=== PATIENT | male | born 2000 | race Caucasian/White ===

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

== ENCOUNTER 2025-04-03 19:08 | Emergency (ER) | payer BC ==
[~2025-04-03] VITALS: Ht 188 cm; Wt 86.5 kg
[~2025-04-03 19:08] MED LIST changes: -CLOM25CA10 PO; -CLOM50CA10 PO; +CLOM50CA4 PO; -ESCI-10 PO; +ESCI-8 PO; -LACT1CAP60 PO; +LIT300C PO; -LITH450T2 PO; +RISP0.5T74 PO; -RISP1TAB13 PO; +SERT-433 PO; +TOP25T PO; -TOPI25TA15 PO
[2025-04-03 20:19] LABS: CREATININE 0.77 MG/DL (0.60-1.10); TOTAL CARBON DIOXIDE 27.0 MMOL/L (24-32); eCRCL 175 ML/MIN; eGFR > 90 ML/MIN
--- NOTE | 2025-04-03 21:04 | Physician Documentation ---
History of Present Illness ~ Chief Complaint: Abdominal Pain w/vomiting Stated Complaint: ABD PAIN Time Seen by MD: 20:16 Primary Medical Doctor: none Source: patient, family Mode of Arrival: POV Exam Limitations: no limitations HPI Chief Complaint: Abdominal pain Caveat: None Independent Historians: Father History of Present Illness: Patient is a 24-year-old man with history of Crohn's disease. Patient is on Skyrizi and has been having some abdominal pain for approximately one month. His presentation designer at [facility] is aware and he has a follow up appointment for endoscopy/colonoscopy on April 26. Patient was out drinking alcohol last night. He believes that this has made his abdominal pain worse. This pain is ranged from five to 8/10. Currently his pain is 5/10. Pain is described as an intermittent squeezing sensation. Patient has had nausea and vomiting for 12 hours and has not been able to keep anything down. That has they main reason why he is currently here. Denies fever. Review of systems: All systems were reviewed and are negative except for what is indicated in the history of present illness. Past Medical History: Crohn's disease Past Surgical History: Fissurectomy Social History: Occasional alcohol, no tobacco use, no drug use Medications: Reviewed as documented Nursing Notes Allergies: Reviewed as documented in Nursing Notes Medication Reconciliation Allergies: Coded Allergies: No Known Allergies (Unverified , 04/03/25) Scheduled Clomipramine HCl (Anafranil), 3 CAP PO HS Escitalopram Oxalate (Escitalopram Oxalate), 1 TAB PO DAILY Graball Carbonate (LITHIUM CARBONATE tablet), 2 TAB PO Q12H Risperidone (Risperdal), 4 TAB PO HS Sertraline HCl (Sertraline HCl), 1 TAB PO DAILY Topiramate (Topamax), 1 TAB PO Q12H Past Medical History Past Medical History: *GI/HEPATOBILIARY*, C-Diff, *PSYCH*, Depression Past Surgical History: noncontributory Drug Use: none Lives with: Family Lives In: Home Review of Systems All Other Systems at this time: Reviewed and Negative ROS Patient denies any other acute symptoms other than above. All other systems are negative Physical Exam Vital Signs: RN Vital Signs have been reviewed: Yes, Temperature: 97.9, Source: Temporal, Heart Rate: 136, Respiratory Rate: 18, BP: 126/64, Pulse Oximetry: 100, Weight: 86.500 Pulse Oximetry Reflects: adequate oxygenation Physical Exam General Appearance: Mild distress HEENT: Normal OP, moist oral mucosa, PERRL, EOMI Neck: supple, normal ROM, trachea midline Pulmonary: No respiratory distress, CTA, BS equal Cardiac: RRR, no murmur, rub or gallop, GI: nondistended, soft, right lower quadrant tenderness, normal bowel sounds, no guarding, no rebound : No CVA tenderness on the left, right CVA tenderness Extremities: normal ROM, no swelling, non-tender Skin: intact, dry, warm, no rashes Neuro: AAOx3, speech is clear, no focal motor weakness Psych: normal affect, good eye contact, no apparent hallucination, normal speech Progress Results/Orders Results/Orders Orders - JOHN CHURCH MD Urinalysis, Cult If Indicated (04/03/25 19:24) Morphine 4mg/Ml Inj. (Morphine Inj.) (04/03/25 21:00) Ct Abdomen Pelvis (04/03/25 20:59) Po Challenge (04/03/25 22:29) Completed Orders - JOHN CHURCH MD Cbc/Diff (04/03/25 19:24) BMP (04/03/25 19:24) Lipase (04/03/25 19:24) CMP (04/03/25 19:24) Ondansetron Inj. (Zofran 4mg/2ml Vial) (04/03/25 21:00) Normal Saline 1000ml (0.9% Sodium Chlori (04/03/25 21:00) Ct Abdomen Pelvis (04/03/25 20:59) Normal Saline 1000ml (0.9% Sodium Chlori (04/03/25 22:35) Medications Received in ER Medications (Trade) Dose Ordered Sig/Jarrett Route PRN Reason Start Time Stop Time Status Last Admin Dose Admin (Zofran 4mg/2ml vial) 4 mg ONCE ONCE IV 04/03/25 21:00 04/03/25 21:02 DC 04/03/25 21:18 4 MG (morphine inj.) 4 mg Q20M PRN IV moderate to severe pain 4-10 04/03/25 21:00 04/03/25 21:18 4 MG (0.9% sodium chloride (NS) 1000ml IV soln) 1,000 ml ONCE ONCE IVB 04/03/25 21:00 04/03/25 21:01 DC 04/03/25 21:17 1,000 ML (0.9% sodium chloride (NS) 1000ml IV soln) 1,000 ml ONCE ONCE IVB 04/03/25 22:35 04/03/25 22:36 DC 04/03/25 22:37 1,000 ML Vital Signs 04/03/25 04/03/25 04/03/25 04/03/25 19:18 19:57 21:18 21:26 Temp 97.9 Pulse 136 115 Resp 22 18 16 16 B/P (MAP) 126/64 128/75 (92) Pulse Ox 100 100 O2 Flow Rate 0 Laboratory Tests Test 04/03/25 19:40 White Blood Count 10.2 Red Blood Count 5.54 Hemoglobin 17.2 Hematocrit 48.4 Mean Corpuscular Volume 87.3 Mean Corpuscular Hemoglobin 31.1 H Mean Corpuscular Hemoglobin Concent 35.6 Red Cell Distribution Width 12.6 Platelet Count 258 Mean Platelet Volume 7.3 L Neutrophils (%) (Auto) 89.6 H Lymphocytes (%) (Auto) 6.4 L Monocytes (%) (Auto) 3.9 Eosinophils (%) (Auto) 0 Basophils (%) (Auto) 0.1 Neutrophils # (Auto) 9.2 H Lymphocytes # (Auto) 0.7 L Monocytes # (Auto) 0.4 Eosinophils # (Auto) 0.0 Basophils # (Auto) 0.0 CBC Comment Sodium Level 136 Potassium Level 3.9 Chloride Level 100 Carbon Dioxide Level 27.0 Anion Gap 9 Blood Urea Nitrogen 17 Creatinine 0.77 Estimated GFR/1.73 m2 > 90 BUN/Creatinine Ratio 22.1 H Glucose Level 91 Calcium Level 9.5 Total Bilirubin 0.9 Aspartate Amino Transf (AST/SGOT) 25 Alanine Aminotransferase (ALT/SGPT) 29 Alkaline Phosphatase 81 Total Protein 8.5 H Albumin 4.5 Globulin 4.0 Albumin/Globulin Ratio 1.1 Lipase 23 Chemistry Comments Medical Decision Making Findings Differential diagnosis includes but is not limited to: Acute appendicitis, Crohn's exacerbation, gastritis, pancreatitis, dehydration, electrolyte abnormalities Abdomen and pelvis CT scan, indication: Abdominal pain, Crohn's disease Impression: Aomvrdxp-[id number]-[id number] colonic stool burden. Correlate clinically for constipation. No other acute abnormality identified in the abdomen or pelvis. No calcified gallstone. Normal appendix. Laboratory data independent interpretation: CBC: Unremarkable CMP: Unremarkable Emergency department course/medical decision-making: Patient is a 24-year-old man who presents with abdominal pain. Patient has Crohn's and he be she has had a flare over the last month with intermittent abdominal pain. Last night he went out to drink and since then he has had nausea and vomiting for over 12 hours. Is given to use of IV normal saline. Patient is given Zofran 4 mg IV and morphine 4 mg IV. Patient is feeling better and he is drinking fluids without vomiting. There does not appear to be any admission criteria. Patient is afebrile and hemodynamically stable. There is no evidence of appendicitis. Test results reviewed with the patient and his father. Patient is stable for discharge. Patient has follow up in 1 month were discussed with the neurologist at [facility]. All the above discussed with the patient and his father. Departure Time of Disposition: 22:27 Disposition: 01 HOME / SELF CARE / HOMELESS Impression: Primary Impression: Abdominal pain Qualified Codes: R10.31 - Right lower quadrant pain Additional Impression: Crohn's disease Qualified Codes: K50.919 - Crohn's disease, unspecified, with unspecified complications Discharge Instructions: Crohn's Disease Additional Instructions: FOLLOW UP WITH YOUR SUBWAY GUARD SCHEDULED. RECOMMEND YOU GIVE HIS OFFICE A CALL THIS WEEK. RETURN TO THE ER IF YOUR SYMPTOMS WORSEN. Education Educated: Patient, Family Educated regarding: diagnosis, treatment, need for follow up Signature Scribe Signature: No scribe Attestation: No marieibe JOHN CHURCH MD Apr 03, 2025 21:04
[2025-04-03 21:13] LABS: MEAN PLATELET VOLUME 7.3 FL (7.4-10.4); RED CELL DISTRIBUTION WIDTH 12.6 % (11.5-14.5)
[2025-04-03] MEDS: normal saline 1000ML IV soln IVB ONE ×2 (21:17→22:37)
[2025-04-03] MEDS: morphine 4 MG/ML inj SYRINge IV PRN (21:18)
[2025-04-03] MEDS: ondansetron/PF 4mg/2ml inj IV ONE (21:18)
--- NOTE | 2025-04-03 21:54 | RADIOLOGY REPORT ---
COMPUTERIZED TOMOGRAPHY ABDOMEN AND PELVIS WITHOUT CONTRAST REASON FOR EXAM: Abdominal Pain COMPARISON: CT ABDOMEN PELVIS on DOS: 03/29/21 TECHNIQUE: Spiral scans were acquired from the diaphragm to the symphysis pubis without intravenous c ontrast administration. 2-D coronal and sagittal reformatted images were provided. Radiation optimiza tion: All CT scans at this facility use at least one of these dose optimization techniques: Automated exposure control mA and/or kV adjustment per patient size (includes targeted exams where dose is mat ched to clinical indication) or iterative reconstruction. RADIATION DOSE: CTDI: 17 mGy DLP: 958 mGy-cm FINDINGS: The lung bases are clear. There is no pleural effusion. There is no pericardial effusion. The spleen is not enlarged. The liver is normal in size and contour. Evaluation of the abdominal orga ns is suboptimal in the absence of intravenous contrast. No calcified gallstone is identified. Unenha nced appearance of the pancreas is unremarkable. The adrenal glands are normal. The kidneys are simil ar in size. There is no hydronephrosis of either kidney. There is no renal, ureteral, or bladder calc ulus. The urinary bladder is unremarkable. The prostate and seminal vesicles are normal. The colonic stool burden is [id number]. The appendix is normal. There is no pathologic distention of the s mall bowel to suggest obstruction. There is no abdominal aortic aneurysm. There is no pathologic lymp hadenopathy by size criteria. No free fluid is identified in the abdomen or pelvis. No acute osseous abnormality is identified. IMPRESSION: [id number] colonic stool burden. Correlate clinically for constipation. No other acute abnorm ality identified in the abdomen or pelvis. No calcified gallstone. Normal appendix.
[2025-04-03 23:26] VITALS: BP 120/70; PULSE 90; RESP 18; TEMP 97.9; O2SAT 98
== END 2025-04-03 23:31 | disposition home or self-care (01) ==
LOC: ER 19:09
DX: K50.919 Crohn's disease, unspecified, with unspecified complications (principal); F32.A Depression, unspecified; Z79.899 Other long term (current) drug therapy
CPT/HCPCS: 74176; 80053; 83690; 85025; 96361; 96374; 96375; 99285; J2270; J2405; J7030